=== PATIENT | female | born 1945 | race Caucasian/White ===

== ENCOUNTER 2025-03-05 21:57 | Emergency (ER) | payer MEDICARE, OTHER, SELFPAY ==
[2025-03-05 22:13] VITALS: BP 140/97
[2025-03-05 22:57] LABS: % Basophils 1.1 % (0-2); % Eosinophils 5.3 % (0-6); % Immature Granulocytes 0.2 % (0-0.5); % Lymphocytes 31.6 % (20.5-51.1); % Monocytes 8.9 % (1.7-9.3); % Neutrophils 52.9 % (42.2-75.2); Absolute Basophils 0.1 10^3/uL (0-0.2); Absolute Eosinophils 0.3 10^3/uL (0-0.7); Absolute Monocytes 0.6 10^3/uL (0.1-0.6); Absolute Neutrophils 3.4 10^3/uL (1.4-6.5); Hematocrit 37.8 % (37.0-47.0); Hemoglobin 12.8 g/dL (12.0-16.0); Mean Corp Hgb Conc. 33.9 g/dL (33.0-37.0); Mean Corpuscular Hgb 30.9 pg (27.0-31.0); Mean Corpuscular Volume 91.3 fL (81.0-99.0); Mean Platelet Volume 10.7 fL (7.4-10.4); Nucleated Red Blood Cells % 0 %; Platelet Count 177 10^3/uL (130-400); Red Blood Cell Count 4.14 10^6/uL (4.20-5.40); Red Cell Dist. Width 13.8 % (11.5-14.5); White Blood Cell Count 6.4 10^3/uL (4.8-10.8)
[2025-03-05 23:13] LABS: ALT (SGPT) 29 U/L (0-35); AST (SGOT) 34 U/L (14-36); Albumin 4.4 g/dl (3.5-5.0); Alkaline Phosphatase 82 U/L (38-126); Blood Urea Nitrogen 41 mg/dl (7-17); Calcium 9.6 mg/dl (8.4-10.2); Carbon Dioxide 22 mmol/L (22-30); Chloride 110 mmol/L (98-107); Glucose 102 mg/dl (70-99); Potassium 4.1 mmol/L (3.5-5.1); Sodium 138 mmol/L (135-145); Total Bilirubin 0.5 mg/dl (0.2-1.3); Total Protein 7.3 g/dl (6.3-8.2); eGFR 56.95
[2025-03-05 23:18] LABS: Troponin I < 0.012 ng/ml
[2025-03-06] VITALS: BP 193/90
[2025-03-06 00:26] VITALS: BP 193/90
[2025-03-06 01:00] VITALS: BP 218/106
--- NOTE | 2025-03-06 01:12 | ED.GENMED ---
History of Present Illness
General
Chief Complaint: Fainting/Passed Out
Source: patient
Exam Limitations: none
Time Seen by Provider: 03/06/25 00:45
History of Present Illness
History of Present Illness:
79-year-old female presents complaining of fatigue and episode that happened earlier tonight which resulted in lightheadedness rapid breathing generalized weakness. She has been having intermittent episodes of fatigue over the past week. She has a
history of neuropathy and feels as though her symptoms from neuropathy are getting worse. She was concerned she was having a heart attack. She has been taking care of her who recently had open heart surgery and bypass surgery. No fevers
or rash. She is outside frequently. Currently at the time my exam she has no complaints feels much better. There was no shortness of breath. No other complaints
Past History
Past History
ED Past Medical History: Hypothyroidism and Other (Osteoarthritis)
ED Past Surgical History: Gynecological (Hysterectomy) and Orthopedic
Social History
Tobacco: Non-smoker
Alcohol: None
Drug: None
Personal:
Living: with family
Phy Exam
Physical Exam
Physical Exam:
General: Well-appearing female no acute respiratory distress
HEENT: Normocephalic atraumatic
Heart: Regular rate and rhythm lungs: Clear no wheeze
Abdomen is soft nontender nondistended
Extremities: No cyanosis or edema
Skin: Warm no rash
Course
Orders/Labs/Results
Orders:
Orders
03/05/25 21:58
ECG [Electrocardiogram (*1)] Urgent
Reason for Study: Syncope
EKG- Treatment ONCE
03/05/25 22:43
Complete Blood Count/With Diff Urgent
Comprehensive Metabolic Panel Urgent
Troponin I Urgent
03/06/25 01:12
Add On- LAB Urgent
Tests Added?: lyme progressive, tsh reflex to free t4
Abnormal Lab Results
03/05/25
22:43
RBC 4.14 L 10^6/uL
(4.20-5.40)
MPV 10.7 H fL
(7.4-10.4)
Chloride 110 H mmol/L
(98-107)
BUN 41 H mg/dl
(7-17)
Glucose 102 H mg/dl
(70-99)
03/05/25 22:43
03/05/25 22:43
Vital Signs
Initial and Last Documented VS:
Initial Vital Signs
Temp Pulse Resp BP Pulse Ox
97.8 F 76 20 140/97 97
03/05/25 22:13 03/05/25 22:13 03/05/25 22:13 03/05/25 22:13 03/05/25 22:13
Last Documented Vital Signs
Temp Pulse Resp BP Pulse Ox
97.8 F 57 15 193/90 99
03/05/25 22:13 03/06/25 00:26 03/06/25 00:26 03/06/25 00:00 03/06/25 00:26
MDM/Problems Addressed
Differential Diagnosis Includes:
Patient with generalized weakness and lightheadedness now feels much better. Consider arrhythmia versus electrolyte abnormality versus dehydration versus anemia. There is no chest pain however troponin and EKG were checked. Symptoms have been
ongoing for days. Workup is reassuring with negative troponin and no ischemic changes on EKG. Vital signs are stable here. She has an appoint with her family doctor in 1 day. At this point no indication for admission. She is requesting to go
home. Recommended rest and hydration. Of note, the BUN was slightly elevated.
*Pulse Oximetry
SaO2: 99
Oxygen Mode of Delivery: Room air
Patient hypoxic: no
*Critical Care Note
Total Time (30-74mins, 75-104mins- exclusive of procedures): Not Applicable
ED Attending Note
-
Portions of this chart may have been created with voice recognition software.� Occasional wrong word or��sound alike� substitutions may have occurred due to the inherent limitations of voice recognition software.
Discharge Plan
Departure
Patient Disposition: Home (Routine Discharge)
Date of Disposition: 03/06/25
Time of Disposition: 01:16
Patient with high blood pressure during this ER visit?: No
Discharge Problem:
Fatigue
Instructions: Syncope (Fainting) (DC)
Prescriptions:
No Action
multivitamin [Multi-Day] 1 EACH tablet
1 tab PO DAILY
famotidine 40 MG tablet
20 mg PO HS
docusate sodium [Stool Softener] 100 MG capsule
100 mg PO HS
cholecalciferol (vitamin D3) 1,000 UNITS tablet
1,000 units PO DAILY
levothyroxine 125 MCG capsule
125 mcg PO DAILY
acetaminophen [Tylenol Extra Strength] 500 MG tablet
500 - 1,000 mg PO Q4HPRN PRN (Reason: pain)
polyethylene glycol 3350 17 GRAMS powder in packet
17 grams PO DAILYPRN PRN (Reason: constipation) Qty: 1 0RF
acetaminophen [Tylenol Extra Strength] 500 MG tablet
1,000 mg PO Q6HPRN PRN (Reason: mild pain) Qty: 1 0RF
ibuprofen 200 MG tablet
400 mg PO Q6HPRN PRN (Reason: moderate pain) Qty: 1 0RF
hydromorphone [Dilaudid] 2 MG tablet
2 mg PO Q6H PRN (Reason: breakthrough/severe pain) Qty: 7 0RF
Referrals:
UNKNOWN - PT DOES,NOT KNOW [Family Provider]
Activity Restrictions/Additional Instructions:
Rest. Stay hydrated. Return if otherwise follow-up with your family doctor as planned. You should receive a call if your Lyme test is positive
Interventions
Interventions:
*Risk Screen - Suicide Last Done: 03/05/25 22:13
*General Assessment Last Done: 03/05/25 22:13
*Neglect/Abuse Screening Last Done: 03/05/25 22:13
*ED- Fall Risk Assessment Last Done: 03/05/25 22:13
*ED COVID-19 Vaccine History Last Done: 03/05/25 22:13
ED- Cardiac Assessment Last Done: 03/06/25 00:21
ED- Neurological Assessment Last Done: 03/06/25 00:21
Discharge Date and Time
Print Language: SYRIAC
[2025-03-06 02:10] VITALS: BP 197/82
[2025-03-06 02:15] VITALS: BP 197/82
[2025-03-06 02:24] LABS: TSH Reflex To Free T4 1.83 uIU/ml (0.47-4.68)
[2025-03-07 14:02] LABS: Lyme Antibody Screen, EIA Negative (Negative)
== END 2025-03-06 02:15 | disposition home or self-care (01) ==
LOC: EMR 21:57
PROVIDERS: Emergency Medicine; EMERGENCY PHYSICIAN Emergency Medicine
DX: R53.83 Other fatigue (principal)
CPT/HCPCS: 99284; 80053; 84443; 84484; 85025; 86618; 93005

== ENCOUNTER → 2025-03-22 08:32 | Outpatient (REF) | payer MEDICARE, OTHER, SELFPAY | LOC: WDC 08:32 | PROVIDERS: ATTENDING PHYSICIAN Family Medicine | DX: Z12.31 Encounter for screening mammogram for malignant neoplasm of breast (principal) | CPT/HCPCS: 77063; 77067 ==

== ENCOUNTER → 2025-05-19 17:40 | Outpatient (REF) | payer MEDICARE, OTHER, SELFPAY | LOC: MRI 17:40 | PROVIDERS: ATTENDING PHYSICIAN Otolaryngology; FAMILY PHYSICIAN Family Medicine | DX: H93.A9 Pulsatile tinnitus, unspecified ear (principal) | CPT/HCPCS: 70553; A9575 ==

== ENCOUNTER → 2025-05-20 17:50 | Outpatient (REF) | payer MEDICARE, OTHER, SELFPAY | LOC: MRI 3T 17:50 | PROVIDERS: ATTENDING PHYSICIAN Otolaryngology; FAMILY PHYSICIAN Family Medicine | DX: H93.12 Tinnitus, left ear (principal) | CPT/HCPCS: 70543; A9575 ==